=== PATIENT | female | born 2000 | race Caucasian/White ===

== ENCOUNTER 2019-05-30 05:58 | Inpatient (IN) ==
[2019-05-30] MEDS ORDERED: Ringers Solution, Lactated 1,000 ML ONE (06:37)
[2019-05-30] MEDS ORDERED: Famotidine 20 MG/2 ML VIAL IVP ONE (06:40)
[2019-05-30] MEDS ORDERED: CeFAZolin Premix DUPLEX 2,000 MG/50 ML BAG IVPB ONE (06:40)
[2019-05-30] MEDS ORDERED: Ringers Solution, Lactated 1,000 ML IVC ONE (06:40)
[2019-05-30] MEDS ORDERED: Metoclopramide 10 MG/2 ML VIAL IVP ONE (06:40)
[2019-05-30] MEDS ORDERED: Ringers Solution, Lactated 1,000 ML IVC SCH ×2 (06:45→12:03)
[2019-05-30 07:09] LABS: Amphetamine Screen,Urine Negative ng/mL (Cutoff=1000); Barbiturate Screen,Urine Negative ng/mL (Cutoff=200)
[2019-05-30 07:10] LABS: Benzodiazepines Screen,Urine Negative ng/mL (Cutoff=300); Cannabinoid Screen,Urine Negative ng/mL (Cutoff = 50); Cocaine Screen,Urine Negative ng/mL (Cutoff= 300); Opiate Screen,Urine Negative ng/mL (Cutoff=300); Phencyclidine Screen,Urine Negative ng/mL (Cutoff=25)
[2019-05-30] MEDS ORDERED: *HR* Morphine Sulfate/PF 10 MG/10 ML AMPUL ONE (07:13)
[2019-05-30] MEDS ORDERED: *HR* FentaNYL (PF) 100 MCG/2 ML VIAL ONE (07:14)
[2019-05-30] MEDS ORDERED: *HR* Oxytocin 10 UNIT/ML VIAL IM ONE (07:14)
[2019-05-30 07:16] LABS: Basophils # 0.1 K/mcL (0.0-0.2); Basophils % 0.5 %; Eosinophils # 0.4 K/mcL (0.0-0.6); Eosinophils % 3.6 %; Immature Granulocytes % 0.7 % (0-4); Lymphocytes # 2.3 K/mcL (0.6-4.6); Lymphocytes % 21.1 %; Mean Corpuscular HGB Conc 34.2 g/dL (31.6-35.5); Mean Corpuscular Volume 90.7 fL (83.0-100.0); Monocytes # 0.8 K/mcL (0.0-1.3); Monocytes % 7.5 %; Neutrophils # 7.4 K/mcL (1.6-8.9); Platelet Count 184 K/mcL (140-400); Red Blood Count 4.19 M/mcL (3.82-4.97); Red Cell Distribution Width 16.2 % (11.5-14.5); Segmented Neutrophils % 66.6 %; White Blood Count 11.1 K/mcL (4.3-11.1)
[2019-05-30] MEDS ORDERED: EPHEDrine 50 MG/ML VIAL ONE (08:08)
[2019-05-30] MEDS ORDERED: Ondansetron 4 MG/2 ML VIAL IVP PRN ×2 (08:31→12:03)
[2019-05-30] MEDS ORDERED: *HR* HYDROmorphone (PF) 1 MG/ML SYRINGE IVP PRN (08:31)
[2019-05-30] MEDS ORDERED: Acetaminophen IV 1,000 MG/100 ML INFUS..BTL IVPB ONE (08:31)
[2019-05-30] MEDS ORDERED: Oxytocin 20 units/ LR 1000 mL 20 UNIT/1,000 ML BAG IVC ONE (10:01)
[2019-05-30] MEDS ORDERED: Metoclopramide 10 MG/2 ML VIAL IVP PRN (12:03)
[2019-05-30] MEDS ORDERED: Oxytocin 20 units/ LR 1000 mL 20 UNIT/1,000 ML BAG IVC SCH (12:03)
[2019-05-30] MEDS ORDERED: Simethicone 80 MG TAB.CHEW PO PRN (12:03)
[2019-05-30] MEDS ORDERED: Sennosides 8.6 MG TABLET PO PRN (12:03)
[2019-05-30] MEDS ORDERED: Rho Immune Globulin 1,500 UNIT SYRINGE IM ONE (12:03)
[2019-05-30] MEDS: *HR* OxyCODONE/APAP 5/325 TABLET PO PRN ×2 (12:36→23:53)
[2019-05-30] MEDS: *HR* OxyCODONE/APAP 10/325 TABLET PO PRN (20:04)
[2019-05-30] MEDS: Ibuprofen 600 MG TABLET PO PRN (23:53)
[2019-05-31 07:36] LABS: Basophils # 0.1 K/mcL (0.0-0.2); Basophils % 0.5 %; Eosinophils # 0.5 K/mcL (0.0-0.6); Eosinophils % 4.2 %; Hematocrit 28.2 % (35.3-44.9); Immature Granulocytes % 0.5 % (0-4); Lymphocytes % 18.1 %; Mean Corpuscular HGB Conc 33.3 g/dL (31.6-35.5); Mean Corpuscular Volume 93.1 fL (83.0-100.0); Mean Platelet Volume 10.5 fL (9.4-12.4); Monocytes # 0.7 K/mcL (0.0-1.3); Neutrophils # 7.7 K/mcL (1.6-8.9); Platelet Count 138 K/mcL (140-400); Red Blood Count 3.03 M/mcL (3.82-4.97); Red Cell Distribution Width 16.2 % (11.5-14.5); Segmented Neutrophils % 70.7 %; White Blood Count 10.9 K/mcL (4.3-11.1)
[2019-05-31] MEDS: Ibuprofen 600 MG TABLET PO PRN ×2 (07:38→18:44)
[2019-05-31] MEDS: Prenatal Vit/FA 1 EACH TABLET PO SCH (07:38)
[2019-05-31 07:42] LABS: Hemoglobin 9.4 g/dL (11.5-15.4)
[2019-05-31] MEDS: *HR* OxyCODONE/APAP 10/325 TABLET PO PRN ×2 (10:59→15:14)
[2019-05-31] MEDS ORDERED: Rho Immune Globulin 1,500 UNIT SYRINGE IM ONE (15:30)
[2019-05-31] MEDS: *HR* OxyCODONE/APAP 5/325 TABLET PO PRN (20:21)
[2019-06-01] MEDS: Ibuprofen 600 MG TABLET PO PRN ×2 (01:11→08:23)
[2019-06-01] MEDS: *HR* OxyCODONE/APAP 5/325 TABLET PO PRN (05:52)
[2019-06-01] MEDS: Prenatal Vit/FA 1 EACH TABLET PO SCH (08:23)
[2019-06-01 08:40] VITALS: BP 123/78
[2019-06-01] MEDS: *HR* OxyCODONE/APAP 10/325 TABLET PO PRN (11:15)
== END 2019-06-01 13:08 | disposition home or self-care (01) | DRG 540 ==
LOC: 1NENULAB 05:58 → 1NENUOBS 11:56
PROVIDERS: ADMIT Obstetrics & Gynecology; ATTEND Obstetrics & Gynecology